=== PATIENT | female | born 1980 | race Caucasian/White ===

== ENCOUNTER 2022-05-09 14:57 | Outpatient (CLI) | payer OTHER, SELFPAY ==
--- NOTE | 2022-05-09 15:00 | CRLHL7_ITS ---
For Patients: As a result of the Century Cures Act, medical imaging exams and procedure reports are released immediately into your electronic medical record. You may view this report before your referring provider. If you have questions, please contact your health care provider. BILATERAL SCREENING MAMMOGRAM WITH COMPUTER-AIDED DETECTION AND TOMOSYNTHESIS TECHNIQUE: CC and MLO views were obtained. These mammographic images have been obtained using full-field digital technique. These mammographic images were interpreted with the benefit of computer-aided detection. Breast Tomosynthesis was used in this interpretation. COMPARISON FILM: Baseline. FINDINGS: There are scattered areas of fibroglandular density IMPRESSION: There is no radiographic evidence for malignancy. ASSESSMENT: BI-RADS Category 1: Negative RECOMMENDATION: Routine screening mammogram in 1 year. A lay language report of this examination will be provided to the patient. Vishal Carrasquillo M.D. Diagnostic Radiologist [email or web address] ERYN/apolinar Transcribed: 9:48 p.m. [place]/Dictated by: Vishal Carrasquillo MD @ 05/10/2022 8:35:00 AM (Electronically Signed)
== END 2022-05-09 14:58 | disposition home or self-care (01) ==
LOC: MAMMO 14:58
PROVIDERS: PCP Physician Assistant Medical; Visit Provider Physician Assistant Medical
DX: Z12.31 Encounter for screening mammogram for malignant neoplasm of breast (principal)
CPT/HCPCS: 77063; 77067

== ENCOUNTER 2023-03-15 16:10 | Outpatient (CLI) | payer OTHER, SELFPAY | END 2023-03-15 16:11 | disposition home or self-care (01) | LOC: FRMREF 16:12 | PROVIDERS: PCP Physician Assistant Medical; Visit Provider Registered Nurse | DX: Z01.419 Encounter for gynecological examination (general) (routine) without abnormal findings (principal); N92.0 Excessive and frequent menstruation with regular cycle | CPT/HCPCS: 84443 ==

== ENCOUNTER 2023-04-05 06:33 | Outpatient (CLI) | payer OTHER, SELFPAY ==
--- NOTE | 2023-04-05 07:53 | W.ANESCHARGE ---
Anesthesia Charges Start Date/Time Anesthesia Start Date: 04/05/23 Anesthesia Start Time: 07:21 Stop Date/Time Anesthesia Stop Date: 04/05/23 Anesthesia Stop Time: 07:52
--- NOTE | 2023-04-05 09:26 | W.ANESCHARGE ---
Anesthesia Charges Start Date/Time Anesthesia Start Date: 04/05/23 Anesthesia Start Time: 07:21 Stop Date/Time Anesthesia Stop Date: 04/05/23 Anesthesia Stop Time: 07:52
== END 2023-04-05 06:34 | disposition home or self-care (01) ==
LOC: OP CLINIC 06:33
PROVIDERS: PCP Physician Assistant Medical; Visit Provider Surgery
DX: Z12.11 Encounter for screening for malignant neoplasm of colon (principal); K63.5 Polyp of colon; K62.1 Rectal polyp; Z80.0 Family history of malignant neoplasm of digestive organs
CPT/HCPCS: 00811; 45385; 88305; J2704

== ENCOUNTER 2023-10-15 09:01 | Outpatient (CLI) | payer OTHER, SELFPAY ==
--- NOTE | 2023-10-15 09:15 | MM_ITS ---
Patient: CARA ATKINSON Facility:?[facility] Patient ID:?[id number] Site Patient ID:?[id number]. Site :?[id number] Study:?XRay-Breast Bilateral 3D W/CAD-10/15/2023 9:29:36 AM Ordering Physician:Jarrod Final Report: BILATERAL SCREENING MAMMOGRAM WITH COMPUTER-AIDED DETECTION AND TOMOSYNTHESIS TECHNIQUE: CC and MLO views were obtained. These mammographic images have been obtained using full-field digital technique. These mammographic images were interpreted with the benefit of computer-aided detection. Breast Tomosynthesis was used in this interpretation. COMPARISON FILM: 05/09/22, 12/12/18 (LT ONLY). FINDINGS: There are scattered areas of fibroglandular density. IMPRESSION: There is no radiographic evidence for malignancy. ASSESSMENT: BI-RADS Category 1: Negative RECOMMENDATION: Routine screening mammogram in 1 year. A lay language report of this examination will be provided to the patient. Vishal Carrasquillo M.D. Diagnostic Radiologist [email or web address] ERYN/sp R& Transcribed: 11:54 a.m. SP/Dictated by: Vishal Carrasquillo MD @ 10/15/2023 10:40:00 AM Signed by:?Vishal Carrasquillo MD @10/15/2023 12:00:36 PM (Electronic Signature)
== END 2023-10-15 09:02 | disposition home or self-care (01) ==
LOC: MAMMO 09:02
PROVIDERS: PCP Physician Assistant Medical; Visit Provider Registered Nurse
DX: Z12.31 Encounter for screening mammogram for malignant neoplasm of breast (principal)
CPT/HCPCS: 77063; 77067

== ENCOUNTER 2024-12-08 09:14 | Outpatient (CLI) | payer OTHER, SELFPAY | END 2024-12-08 09:15 | disposition home or self-care (01) | PROVIDERS: PCP Physician Assistant Medical; Visit Provider Physician Assistant Medical | DX: Z00.00 Encounter for general adult medical examination without abnormal findings (principal); E78.2 Mixed hyperlipidemia; F41.8 Other specified anxiety disorders | CPT/HCPCS: 80053; 80061; 84443 ==